=== PATIENT | female | born 1975 | race Caucasian/White ===

== ENCOUNTER → 2016-08-19 | Outpatient (CLI) | payer OTHER ==
[~2016-08-19] MED LIST: ALBUTEROL0.09 MG/A2 IH; ANAPROX DS550 MG PO; ATENOLOL25 MG PO; ATENOLOL50 M1 PO; ATIVAN1 MG PO; BENTYL20 MG PO; CARAFATE1 G1 PO; CIPRO500 MG PO; CIPROFLOXACIN500 MG PO; CLARITIN10 MG PO; CLEOCIN150 MG PO; CLINDAMYCIN HC300 MG PO; CLINDAMYCIN300 MG PO; CORTISPORIN SUS10 ML OT; DARVOCET N 1001 TAB PO; DEPAKOTE ER500 MG PO; EPI EZ PEN1 MG/ML IM; ETODOLAC PO; FLEXERIL10 MG PO; Fioricet 325 MG1 TAB PO; GEMFIBROZIL600 MG PO; HYDR12.5C PO; HYDROCODONE BIT1 T11 PO; IBUPROFEN600 MG PO; KCL PO; KEFLEX500 MG PO; KLOR-CON M2020 MEQ PO; LASIX40 MG PO; METFORMIN500 MG PO; MOTRIN400 MG PO; MOTRIN800 MG PO; MUCINEX100 MG PO; NAPROSYN500 MG PO; NKHM; NORCO 325 MG-51 TAB PO; OMEPRAZOLE20 MG PO; PAXIL20 MG PO; PAXIL30 M2 PO; PHENERGAN25 M1 PO; PREDNISONE10 MG PO; PRILOSEC20 M1 PO; PRILOSEC20 MG PO; PYRIDIUM200 MG PO; Peridex 473 ML473 ML PO; ROBITUSSIN-AC 160 ML PO; SEPTRA DS 800 M1 TAB PO; TESSALON PERLE200 MG PO; TRAMADOL HCL50 MG PO; TYLENOL325 M1 PO; ULTRAM50 MG PO; VENTOLIN H0.09 MG/AC INH; VIBRAMYCIN100 MG PO; VICODIN 500 MG-1 TAB PO; VIT D PO; VITAMIN D32000 I1 PO; VOLTAREN50 M1 PO; WELLBUTRIN SR150 MG PO; ZITHROMAX Z PA250 MG PO; ZOFRAN ODT4 MG PO; ZOFRAN ODT4 MG SL; ZOFRAN4 MG PO; [UNRECOGNIZED DRUG - REMARK]
--- NOTE | ~2016-08-19 | ST ---
[place], [place] EXERCISE STRESS TEST REPORT NAME: [facility]: [id number] UNIT #: [id number] ROOM: DOCTOR: EMILY LAND MD BIRTHDATE: [birth year] DOS: Lexiscan portion of the Lexiscan Cardiolite, 0.4 mg of Lexiscan, duration of 10 seconds. Baseline cardiogram, sinus rhythm with Lexiscan. There is 1-[address] depression in the inferior and lateral leads which slowly reverted back to the baseline. The patient denies any chest discomfort. Blood pressure and heart rate response was normal. FINAL IMPRESSION: Abnormal EKG response with ST depression in the inferior and lateral leads. No chest discomfort. Blood pressure and heart rate response was normal. Nuclear images will be reported separately. EMILY LAND MD CM:STRESS:EXERCISE STRESS TEST REPORT [id number] JEWEL LAND MD
== END | disposition home or self-care (01) ==
LOC: CARD 02:49
DX: Z01.818 Encounter for other preprocedural examination (principal); R53.83 Other fatigue; R06.02 Shortness of breath; R53.81 Other malaise

== ENCOUNTER 2017-02-17 19:31 | Emergency (ER) | payer OTHER ==
[~2017-02-17] VITALS: Ht 180.3 cm; Wt 150.1 kg
[2017-02-17 19:50] VITALS: BP 121/84
[2017-02-17] MEDS ORDERED: PREDNISONE10 MG PO (20:07)
[2017-02-17] MEDS ORDERED: ZITHROMAX250 MG PO (20:07)
[2017-02-17] MEDS ORDERED: DUONEB 3 MG/3 ML3 M1 INH (20:42)
== END 2017-02-17 21:13 | disposition home or self-care (01) ==
LOC: ED 19:31
DX: J20.9 Acute bronchitis, unspecified (principal); J44.9 Chronic obstructive pulmonary disease, unspecified; G43.909 Migraine, unspecified, not intractable, without status migrainosus; F17.200 Nicotine dependence, unspecified, uncomplicated; Z88.0 Allergy status to penicillin; Z88.2 Allergy status to sulfonamides; Z79.899 Other long term (current) drug therapy

== ENCOUNTER → 2017-07-01 | Outpatient (CLI) | payer OTHER ==
[~2017-07-01] MED LIST changes: +DUONEB 3 MG/3 ML3 M1 INH; +ZITHROMAX250 MG PO
== END | disposition home or self-care (01) ==
LOC: NM 06:57
DX: R10.11 Right upper quadrant pain (principal); R10.84 Generalized abdominal pain; R11.0 Nausea

== ENCOUNTER → 2017-09-18 | Day surgery (SDC) | payer OTHER ==
[~2017-09-18] VITALS: Ht 172.7 cm; Wt 154.7 kg
--- NOTE | ~2017-09-18 | O ---
[place], [place] OPERATIVE NOTE NAME: [id number] UNIT #: [id number] ROOM: DOCTOR: MARICRUZ REECELAURIE BIRTHDATE: [birth year] DOS: 09/18/2017 GASTROENDOSCOPIC REPORT HISTORY OF PRESENT ILLNESS: This is a 42-year-old obese patient who has presented with a liquid diarrhea stool and she has a history of diabetes mellitus as well. She is drinking 6 Mountain Dews per day. PAST MEDICAL HISTORY: Associated with diabetes, hypertension. PAST SURGICAL HISTORY: Hysterectomy and left ankle repair. ALLERGIES: PENICILLIN AND SULFA. FAMILY HISTORY: Sister with colonic carcinoma who at age 40. SOCIAL HISTORY: Smoker of a pack cigarette, nonalcohol consumer. PROCEDURE: Today's procedure part of investigation is colonoscopy plus biopsy. PREMEDICATION: Versed and Diprivan. SCOPE: Olympus folding colonoscope 10L video. REPORT: After putting the patient in left lateral position and application of lubricant to the scope, the scope was introduced. Thereafter, under direct visualization, advanced through the length of colon without difficulty. Base of the cecum explored, appendiceal orifice identified, ileocecal valve was defined and photographed. Scope was gradually withdrawn from ascending, transverse, descending colon under circumferential fashion. Mucosal vascularity carefully examined and ____. Scope withdrawn to the sigmoid level and nonspecific colitis. A segment of approximately 8 cm was noticed. Photographed biopsied. Gradually scope withdrawn after air was suctioned out. The patient tolerated the procedure well. IMPRESSION: Short segment of nonspecific colitis of sigmoid colon, status post biopsy. PLAN AND DISCUSSION: This patient has been on naproxen, has been on metformin, and also has been on Prilosec. All may have led to some of the irregularity of her bowel movement. However, the most concerning on the list is her metformin intake. We are going to switch her to metformin extended release tablet 1 b.i.d. I have advised her to abstain from drinking 6 cans of Mountain Dews per day. We have advised her to abstain from inhaling cigarettes or avoiding cigarettes entirely and the patient is already on Zithromax and prednisone for bronchitis management. The patient is going to have routine follow up with you in office, p.r.n. visit with us in clinic. Advised to be more compliant with diabetic diet. Thank you very much indeed for kind referral. [place], [place] OPERATIVE NOTE NAME: KANDY FRANCISCO UNIT #: [id number] ROOM: DOCTOR: MARICRUZ REECE,LAURIE BIRTHDATE: [birth year] LAURIE ALCANTARA MD CM:OPRECORD:OPERATIVE NOTE [id number] LAURIE ALCANTARA MD 09/18/17 1336 interface
[2017-09-18 09:15] VITALS: BP 134/68
[2017-09-18 10:35] VITALS: BP 168/104
== END | disposition home or self-care (01) ==
LOC: SDC 09-15 11:00
DX: K51.90 Ulcerative colitis, unspecified, without complications (principal); E11.9 Type 2 diabetes mellitus without complications; I10 Essential (primary) hypertension; Z90.710 Acquired absence of both cervix and uterus; Z98.890 Other specified postprocedural states; Z88.0 Allergy status to penicillin; Z88.1 Allergy status to other antibiotic agents; Z80.0 Family history of malignant neoplasm of digestive organs; F17.210 Nicotine dependence, cigarettes, uncomplicated; K21.9 Gastro-esophageal reflux disease without esophagitis; J44.9 Chronic obstructive pulmonary disease, unspecified; G47.30 Sleep apnea, unspecified; E66.01 Morbid (severe) obesity due to excess calories; Z79.84 Long term (current) use of oral hypoglycemic drugs; Z79.899 Other long term (current) drug therapy; M19.90 Unspecified osteoarthritis, unspecified site; F31.9 Bipolar disorder, unspecified; F79 Unspecified intellectual disabilities; Z83.3 Family history of diabetes mellitus; Z82.49 Family history of ischemic heart disease and other diseases of the circulatory system; Z80.9 Family history of malignant neoplasm, unspecified

== ENCOUNTER → 2018-07-17 | Outpatient (CLI) | payer OTHER | END | disposition home or self-care (01) | LOC: RAD 16:04 | DX: M47.816 Spondylosis without myelopathy or radiculopathy, lumbar region (principal); M48.061 Spinal stenosis, lumbar region without neurogenic claudication ==

== ENCOUNTER 2018-11-24 18:05 | Emergency (ER) | payer OTHER ==
[~2018-11-24] VITALS: Ht 172.7 cm; Wt 157.9 kg
[2018-11-24 18:06] VITALS: BP 160/82
[2018-11-24 18:54] LABS: HEMATOCRIT 44.5 % (37.0-47.0); HEMOGLOBIN 15.3 g/dl (12.0-16.0); MEAN CELL VOLUME 93.7 fl (81.0-99.0); MEAN CORPUSCULAR HGB 32.2 pg (27.0-31.0); MEAN CORPUSCULAR HGB CONC 34.4 g/dl (33.0-37.0); MEAN PLATELET VOLUME 11.9 fl (9.6-12.3); PLATELET COUNT AUTOMATED 237 10*3/uL (130-400); RED BLOOD COUNT 4.75 10*6/uL (4.10-5.10); RED CELL DISTRI WIDTH 13.6 % (0-14.5); WHITE BLOOD COUNT 13.1 10*3/uL (4.8-10.8)
[2018-11-24 19:10] LABS: ALBUMIN 3.7 gm/dl (3.1-4.5); CREATININE 1.2 mg/dL (0.55-1.02); POTASSIUM 3.6 mmol/L (3.5-5.1); TOTAL PROTEIN 6.9 gm/dL (6.4-8.2)
[2018-11-24 19:20] LABS: BASOPHILS 1 % (0-1); BURR CELLS FEW; TOTAL CELLS COUNTED 100 #CELLS
[2018-11-24 19:21] LABS: PLATELET SUFFICIENCY NORMAL (NORMAL)
[2018-12-07] MEDS ORDERED: LISINOPRIL5 MG PO (09:35)
[2018-12-07] MEDS ORDERED: TEMAZEPAM15 M1 PO (09:36)
[2018-12-07] MEDS ORDERED: HYDROCHLOROTHIA25 M1 PO (09:37)
[2018-12-07] MEDS ORDERED: ATENOLOL25 MG PO (09:37)
[2018-12-07] MEDS ORDERED: OXAPROZIN600 M1 PO (09:38)
[2018-12-07] MEDS ORDERED: 24 HOUR ALLER15.8 ML NAS (09:40)
[2018-12-07] MEDS ORDERED: OHM ALLERGY REL10 MG PO (09:40)
[2018-12-07] MEDS ORDERED: PROVENTIL HFA6.7 GM INH (09:41)
[2018-12-07] MEDS ORDERED: ATORVASTATIN CA80 M1 PO (09:42)
[2018-12-07] MEDS ORDERED: LANSOPRAZOLE30 MG PO (09:42)
[2018-12-07] MEDS ORDERED: NATURE'S BLEND F1 MG PO (09:43)
[2018-12-07] MEDS ORDERED: VITAMIN D32000 UNI1 PO (09:43)
[2018-12-07] MEDS ORDERED: AVPAK METFORMI500 M1 PO (09:47)
[2018-12-07] MEDS ORDERED: ALOGLIPTIN25 MG PO (09:48)
[2018-12-07] MEDS ORDERED: [UNRECOGNIZED DRUG - OTHER] INH (09:48)
[2018-12-07] MEDS ORDERED: NOVOLIN 70100 UNIT/1 SQ (09:51)
[2018-12-10] MEDS ORDERED: HYOSCYAMINE0.125 MG PO (15:26)
== END 2018-11-24 19:51 | disposition home or self-care (01) ==
LOC: ED 18:05
PROVIDERS: Emergency Medicine
DX: K62.5 Hemorrhage of anus and rectum (principal); R10.84 Generalized abdominal pain; F17.200 Nicotine dependence, unspecified, uncomplicated; G43.909 Migraine, unspecified, not intractable, without status migrainosus; Z98.51 Tubal ligation status; Z90.710 Acquired absence of both cervix and uterus; Z98.890 Other specified postprocedural states; Z79.899 Other long term (current) drug therapy; Z88.0 Allergy status to penicillin; Z88.2 Allergy status to sulfonamides

== ENCOUNTER → 2018-12-28 | Outpatient (CLI) | payer OTHER ==
[~2018-12-28] MED LIST changes: +24 HOUR ALLER15.8 ML NAS; +ALOGLIPTIN25 MG PO; +ATORVASTATIN CA80 M1 PO; +AVPAK METFORMI500 M1 PO; +HYDROCHLOROTHIA25 M1 PO; +HYOSCYAMINE0.125 MG PO; +LANSOPRAZOLE30 MG PO; +LISINOPRIL5 MG PO; +NATURE'S BLEND F1 MG PO; +NOVOLIN 70100 UNIT/1 SQ; +OHM ALLERGY REL10 MG PO; +OXAPROZIN600 M1 PO; +PROVENTIL HFA6.7 GM INH; +TEMAZEPAM15 M1 PO; +VITAMIN D32000 UNI1 PO; +[UNRECOGNIZED DRUG - OTHER] INH
== END | disposition home or self-care (01) ==
LOC: D 10:07
DX: I10 Essential (primary) hypertension (principal)

== ENCOUNTER → 2019-06-22 | Day surgery (SDC) | payer OTHER ==
[~2019-06-22] VITALS: Ht 172.7 cm; Wt 152.9 kg
[~2019-06-22] MED LIST changes: +DULCOLAX5 M1 PO; +NORCO 10-325 T1 EACH PO; +SURFAK240 MG PO
[2019-06-22 07:03] VITALS: BP 101/73
[2019-06-22 08:30] VITALS: BP 122/64
[2019-06-22 08:45] VITALS: BP 118/73
[2019-06-22 09:00] VITALS: BP 121/75
== END | disposition home or self-care (01) ==
LOC: SDC 05-20 12:30
DX: K62.5 Hemorrhage of anus and rectum (principal); C21.8 Malignant neoplasm of overlapping sites of rectum, anus and anal canal; K29.50 Unspecified chronic gastritis without bleeding; J44.9 Chronic obstructive pulmonary disease, unspecified; I10 Essential (primary) hypertension; K21.9 Gastro-esophageal reflux disease without esophagitis; F41.9 Anxiety disorder, unspecified; F32.9 Major depressive disorder, single episode, unspecified; F17.210 Nicotine dependence, cigarettes, uncomplicated; E66.01 Morbid (severe) obesity due to excess calories; Z68.43 Body mass index [BMI] 50.0-59.9, adult; Z88.2 Allergy status to sulfonamides; Z88.0 Allergy status to penicillin; Z88.8 Allergy status to other drugs, medicaments and biological substances; Z79.899 Other long term (current) drug therapy; Z98.890 Other specified postprocedural states; Z83.3 Family history of diabetes mellitus; Z82.3 Family history of stroke; Z82.49 Family history of ischemic heart disease and other diseases of the circulatory system

== ENCOUNTER 2019-07-02 15:49 | Emergency (ER) | payer OTHER ==
[~2019-07-02] VITALS: Ht 172.7 cm; Wt 152.9 kg
[~2019-07-02 15:49] MED LIST changes: -DULCOLAX5 M1 PO; -NORCO 10-325 T1 EACH PO; -SURFAK240 MG PO
[2019-07-02 15:59] VITALS: BP 100/50
[2019-07-02 16:20] LABS: HEMATOCRIT 43.6 % (37.0-47.0); HEMOGLOBIN 14.7 g/dl (12.0-16.0); MEAN CELL VOLUME 90.6 fl (81.0-99.0); MEAN CORPUSCULAR HGB 30.6 pg (27.0-31.0); MEAN CORPUSCULAR HGB CONC 33.7 g/dl (33.0-37.0); MEAN PLATELET VOLUME 11.3 fl (9.6-12.3); PLATELET COUNT AUTOMATED 217 10*3/uL (130-400); RED BLOOD COUNT 4.81 10*6/uL (4.10-5.10); RED CELL DISTRI WIDTH 13.9 % (0-14.5); WHITE BLOOD COUNT 17.5 10*3/uL (4.8-10.8)
[2019-07-02 16:32] LABS: ACT PARTIAL THROMBO TIME 27.3 SECONDS (20.0-32.1)
[2019-07-02 16:43] LABS: PLATELET SUFFICIENCY NORMAL (NORMAL); TOTAL CELLS COUNTED 100 #CELLS
[2019-07-02 16:48] LABS: ALBUMIN 3.4 gm/dl (3.1-4.5); ALKALINE PHOSPHATASE 60 U/L (45-117); BUN 18 mg/dl (7-24); CHLORIDE 102 mmol/L (98-107); CREATININE 1.18 mg/dL (0.55-1.02); POTASSIUM 3.2 mmol/L (3.5-5.1); SGOT/AST 23 IU/L (3-35); SGPT/ALT 17 U/L (12-78); SODIUM 140 mmol/L (136-145); TOTAL PROTEIN 7.5 gm/dL (6.4-8.2)
[2019-07-02] MEDS ORDERED: NORCO 10-325 T1 EACH PO (17:04)
[2019-07-02] MEDS ORDERED: SURFAK240 MG PO (17:05)
[2019-07-02] MEDS ORDERED: DULCOLAX5 M1 PO (17:05)
[2019-07-03 08:01] LABS: DIFFERENTIAL COMMENT COMMENT:
== END 2019-07-02 17:08 | disposition home or self-care (01) ==
LOC: ED 15:49
PROVIDERS: Emergency Medicine
DX: K62.5 Hemorrhage of anus and rectum (principal); E11.9 Type 2 diabetes mellitus without complications; G43.909 Migraine, unspecified, not intractable, without status migrainosus; K21.9 Gastro-esophageal reflux disease without esophagitis; J44.9 Chronic obstructive pulmonary disease, unspecified; E78.00 Pure hypercholesterolemia, unspecified; F17.200 Nicotine dependence, unspecified, uncomplicated; Z88.0 Allergy status to penicillin; Z88.2 Allergy status to sulfonamides; Z79.899 Other long term (current) drug therapy; Z79.4 Long term (current) use of insulin

== ENCOUNTER 2019-08-10 11:12 | Emergency (ER) | payer OTHER ==
[~2019-08-10] VITALS: Ht 172.7 cm; Wt 152.9 kg
[~2019-08-10 11:12] MED LIST changes: +DULCOLAX5 M1 PO; +NORCO 10-325 T1 EACH PO; +SURFAK240 MG PO
[2019-08-10 11:20] VITALS: BP 113/58
[2019-08-10] MEDS ORDERED: NORCO 10-325 T1 EACH PO (11:52)
== END 2019-08-10 12:10 | disposition home or self-care (01) ==
LOC: ED 11:12
DX: C18.9 Malignant neoplasm of colon, unspecified (principal); G43.909 Migraine, unspecified, not intractable, without status migrainosus; J45.909 Unspecified asthma, uncomplicated; K21.9 Gastro-esophageal reflux disease without esophagitis; I10 Essential (primary) hypertension; E11.9 Type 2 diabetes mellitus without complications; M19.90 Unspecified osteoarthritis, unspecified site; J44.9 Chronic obstructive pulmonary disease, unspecified; E78.00 Pure hypercholesterolemia, unspecified; F17.200 Nicotine dependence, unspecified, uncomplicated; Z88.0 Allergy status to penicillin; Z88.2 Allergy status to sulfonamides; Z91.030 Bee allergy status; Z79.899 Other long term (current) drug therapy

== ENCOUNTER 2020-01-24 17:20 | Emergency (ER) | payer OTHER ==
[~2020-01-24] VITALS: Ht 175.2 cm; Wt 145.1 kg
[2020-01-24 17:22] VITALS: BP 118/56
[2020-01-24 17:54] LABS: BASO # 0.1 10*3/uL (0.0-0.1); BASO % 1.3 % (0.0-1.0); EOS # 0.2 10*3/uL (0.0-0.4); EOS % 3.2 % (1.0-4.0); HEMATOCRIT 40.5 % (37.0-47.0); LYMPH # 1.6 10*3/uL (1.3-4.4); LYMPH % 21.8 % (27.0-41.0); MEAN CORPUSCULAR HGB 32.5 pg (27.0-31.0); MEAN CORPUSCULAR HGB CONC 33.8 g/dl (33.0-37.0); MEAN PLATELET VOLUME 10.5 fl (9.6-12.3); MONO # 0.5 10*3/uL (0.1-1.0); NEUT # 4.9 10*3/uL (2.3-7.9); NEUT % 65.9 % (47.0-73.0); PLATELET COUNT AUTOMATED 260 10*3/uL (130-400); RED BLOOD COUNT 4.22 10*6/uL (4.10-5.10); RED CELL DISTRI WIDTH 16.7 % (0-14.5); WHITE BLOOD COUNT 7.5 10*3/uL (4.8-10.8)
[2020-01-24 18:08] LABS: ACT PARTIAL THROMBO TIME 27.9 SECONDS (20.0-32.1)
[2020-01-24 18:10] LABS: ALBUMIN 3.1 gm/dl (3.1-4.5); ALKALINE PHOSPHATASE 75 U/L (45-117); BUN 12 mg/dl (7-24); CHLORIDE 103 mmol/L (98-107); CREATININE 0.86 mg/dL (0.55-1.02); LIPASE 207 U/L (73-393); POTASSIUM 3.6 mmol/L (3.5-5.1); SGOT/AST 12 IU/L (3-35); SGPT/ALT 25 U/L (12-78); SODIUM 137 mmol/L (136-145); TOTAL PROTEIN 7.2 gm/dL (6.4-8.2)
[2020-01-24 18:12] LABS: BILIRUBIN 1+ (NEGATIVE); BLOOD TRACE-INTACT (NEGATIVE); CLARITY CLOUDY (CLEAR); COLOR YELLOW (YELLOW); GLUCOSE NEGATIVE (NEGATIVE); KETONE NEGATIVE (NEGATIVE); LEUKO ESTERASE 3+ (NEGATIVE); NITRITE NEGATIVE (NEGATIVE); PH 6.5 (5.0-9.0); SPECIFIC GRAVITY 1.015 (1.005-1.030); UROBILINOGEN 0.2 E.U./dl (0.2-1.0)
[2020-01-24 18:37] LABS: RBC 31-40 rbc/hpf (0-2); WBC TNTC wbc/hpf (0-5)
[2020-01-24 18:38] LABS: BACTERIA 3+
[2020-01-24] MEDS ORDERED: CEPHALEXIN500 M1 PO (20:29)
== END 2020-01-24 20:55 | disposition home or self-care (01) ==
LOC: ED 17:20
PROVIDERS: Nurse Practitioner Family
DX: N39.0 Urinary tract infection, site not specified (principal); Z88.8 Allergy status to other drugs, medicaments and biological substances; Z88.0 Allergy status to penicillin; Z88.5 Allergy status to narcotic agent; Z91.030 Bee allergy status; Z79.899 Other long term (current) drug therapy

== ENCOUNTER 2020-05-22 17:37 | Emergency (ER) | payer MEDICARE, MEDICAID ==
[~2020-05-22] VITALS: Ht 175.2 cm; Wt 146.1 kg
[~2020-05-22 17:37] MED LIST changes: +CEPHALEXIN500 M1 PO
[2020-05-22 17:44] VITALS: BP 133/89
[2020-05-22 17:59] LABS: BASO # 0.1 10*3/uL (0.0-0.1); BASO % 1.3 % (0.0-1.0); EOS # 0.1 10*3/uL (0.0-0.4); EOS % 1.8 % (1.0-4.0); HEMATOCRIT 44.9 % (37.0-47.0); LYMPH # 1.9 10*3/uL (1.3-4.4); LYMPH % 26.1 % (27.0-41.0); MEAN CELL VOLUME 84.9 fl (81.0-99.0); MEAN PLATELET VOLUME 10.4 fl (9.6-12.3); MONO # 0.4 10*3/uL (0.1-1.0); MONO % 5.7 % (3.0-9.0); NEUT # 4.6 10*3/uL (2.3-7.9); NEUT % 64.7 % (47.0-73.0); PLATELET COUNT AUTOMATED 264 10*3/uL (130-400); RED BLOOD COUNT 5.29 10*6/uL (4.10-5.10); RED CELL DISTRI WIDTH 14.1 % (0-14.5); WHITE BLOOD COUNT 7.1 10*3/uL (4.8-10.8)
[2020-05-22 18:15] LABS: ALBUMIN 3.3 gm/dl (3.1-4.5); ALKALINE PHOSPHATASE 83 U/L (45-117); BUN 10 mg/dl (7-24); CHLORIDE 106 mmol/L (98-107); CREATININE 0.91 mg/dL (0.55-1.02); POTASSIUM 3.6 mmol/L (3.5-5.1); SGOT/AST 37 IU/L (3-35); SGPT/ALT 40 U/L (12-78); SODIUM 139 mmol/L (136-145); TOTAL PROTEIN 7.5 gm/dL (6.4-8.2)
[2020-05-22 18:16] LABS: TROPONIN I < 0.015 ng/ml (<0.045)
[2020-05-22 18:22] LABS: ACT PARTIAL THROMBO TIME 31.3 SECONDS (20.0-32.1)
[2020-05-22] MEDS ORDERED: KETOROLAC10 MG PO (18:58)
== END 2020-05-22 19:05 | disposition home or self-care (01) ==
LOC: ED 17:37
PROVIDERS: Emergency Medicine
DX: R09.1 Pleurisy (principal); Z88.0 Allergy status to penicillin; Z88.2 Allergy status to sulfonamides; Z91.030 Bee allergy status; Z79.899 Other long term (current) drug therapy; Z79.84 Long term (current) use of oral hypoglycemic drugs; Z79.2 Long term (current) use of antibiotics

== ENCOUNTER 2020-08-18 17:41 | Emergency (ER) | payer OTHER, MEDICAID ==
[~2020-08-18] VITALS: Ht 175.2 cm; Wt 147.4 kg
[~2020-08-18 17:41] MED LIST changes: +KETOROLAC10 MG PO
[2020-08-18 17:50] VITALS: BP 152/92
[2020-08-18 18:28] LABS: BASO # 0.1 10*3/uL (0.0-0.1); BASO % 1.5 % (0.0-1.0); EOS # 0.1 10*3/uL (0.0-0.4); EOS % 1.9 % (1.0-4.0); HEMATOCRIT 44.9 % (37.0-47.0); LYMPH # 1.9 10*3/uL (1.3-4.4); LYMPH % 26.5 % (27.0-41.0); MEAN CELL VOLUME 86.5 fl (81.0-99.0); MEAN CORPUSCULAR HGB 29.5 pg (27.0-31.0); MEAN CORPUSCULAR HGB CONC 34.1 g/dl (33.0-37.0); MEAN PLATELET VOLUME 10.9 fl (9.6-12.3); MONO # 0.5 10*3/uL (0.1-1.0); MONO % 7.4 % (3.0-9.0); NEUT # 4.6 10*3/uL (2.3-7.9); NEUT % 62.4 % (47.0-73.0); PLATELET COUNT AUTOMATED 260 10*3/uL (130-400); RED BLOOD COUNT 5.19 10*6/uL (4.10-5.10); RED CELL DISTRI WIDTH 14.3 % (0-14.5); WHITE BLOOD COUNT 7.3 10*3/uL (4.8-10.8)
[2020-08-18 18:47] LABS: ALBUMIN 3.3 gm/dl (3.1-4.5); ALKALINE PHOSPHATASE 99 U/L (45-117); BUN 16 mg/dl (7-24); CHLORIDE 102 mmol/L (98-107); CREATININE 1.15 mg/dL (0.55-1.02); POTASSIUM 4.1 mmol/L (3.5-5.1); SGOT/AST 36 IU/L (3-35); SGPT/ALT 43 U/L (12-78); SODIUM 134 mmol/L (136-145); TOTAL PROTEIN 7.4 gm/dL (6.4-8.2)
[2020-08-18 18:57] LABS: BILIRUBIN Negative (Negative); BLOOD Trace-Lysed (Negative); CLARITY Clear (Clear); COLOR Yellow (Yellow); GLUCOSE 3+ (Negative); KETONE Negative (Negative); LEUKO ESTERASE 1+ (Negative); NITRITE Negative (Negative); SPECIFIC GRAVITY >= 1.030 (1.001-1.030); UROBILINOGEN 0.2 E.U./dl (0.0-1.0)
[2020-08-18 19:09] LABS: EPITHELIAL CELLS 16-20; WBC 16-20 wbc/hpf (0-5)
[2020-08-18] MEDS ORDERED: IMODIUM A-D2 M2 PO (20:38)
== END 2020-08-18 20:50 | disposition home or self-care (01) ==
LOC: ED 17:41
PROVIDERS: Nurse Practitioner Family
DX: R11.2 Nausea with vomiting, unspecified (principal); Z20.828 Contact with and (suspected) exposure to other viral communicable diseases; R19.7 Diarrhea, unspecified; E11.9 Type 2 diabetes mellitus without complications; Z98.51 Tubal ligation status; Z90.710 Acquired absence of both cervix and uterus; Z79.899 Other long term (current) drug therapy; Z88.0 Allergy status to penicillin; Z88.2 Allergy status to sulfonamides; Z91.030 Bee allergy status

== ENCOUNTER → 2020-09-28 | Outpatient (CLI) | payer OTHER, MEDICAID ==
[~2020-09-28] MED LIST changes: +IMODIUM A-D2 M2 PO
== END | disposition home or self-care (01) ==
LOC: US 09-12 07:30
PROVIDERS: ATTEND Family Medicine
DX: D37.6 Neoplasm of uncertain behavior of liver, gallbladder and bile ducts (principal)

== ENCOUNTER 2021-05-01 05:32 | Emergency (ER) | payer MEDICARE ==
[~2021-05-01] VITALS: Ht 167.6 cm; Wt 144.2 kg
[2021-05-01 06:27] LABS: BASO # 0.1 10*3/uL (0.0-0.1); BASO % 1.1 % (0.0-1.0); EOS # 0.1 10*3/uL (0.0-0.4); EOS % 1.5 % (1.0-4.0); HEMATOCRIT 45.4 % (37.0-47.0); LYMPH # 2.4 10*3/uL (1.3-4.4); LYMPH % 25.8 % (27.0-41.0); MEAN CELL VOLUME 89.2 fl (81.0-99.0); MEAN CORPUSCULAR HGB 29.9 pg (27.0-31.0); MEAN CORPUSCULAR HGB CONC 33.5 g/dl (33.0-37.0); MEAN PLATELET VOLUME 10.7 fl (9.6-12.3); MONO # 0.7 10*3/uL (0.1-1.0); MONO % 7.3 % (3.0-9.0); NEUT # 6.1 10*3/uL (2.3-7.9); PLATELET COUNT AUTOMATED 227 10*3/uL (130-400); RED BLOOD COUNT 5.09 10*6/uL (4.10-5.10); RED CELL DISTRI WIDTH 14.7 % (0-14.5); WHITE BLOOD COUNT 9.5 10*3/uL (4.8-10.8)
[2021-05-01 06:45] LABS: ALBUMIN 3.2 gm/dl (3.1-4.5); ALKALINE PHOSPHATASE 86 U/L (45-117); BUN 16 mg/dl (7-24); CHLORIDE 106 mmol/L (98-107); CREATININE 0.94 mg/dL (0.55-1.02); LIPASE 136 U/L (73-393); POTASSIUM 4.1 mmol/L (3.5-5.1); SGOT/AST 16 IU/L (3-35); SGPT/ALT 30 U/L (12-78); SODIUM 138 mmol/L (136-145); TOTAL PROTEIN 7.2 gm/dL (6.4-8.2)
[2021-05-01 06:54] LABS: BILIRUBIN Negative (Negative); BLOOD Negative (Negative); CLARITY Cloudy (Clear); COLOR Yellow (Yellow); GLUCOSE 3+ (Negative); KETONE Negative (Negative); LEUKO ESTERASE 2+ (Negative); NITRITE Negative (Negative); PH 5.5 (4.5-8.0); SPECIFIC GRAVITY 1.025 (1.001-1.030)
[2021-05-01 07:08] LABS: BACTERIA 4+; WBC 41-50 wbc/hpf (0-5)
[2021-05-01 08:07] VITALS: BP 128/79
[2021-05-01] MEDS ORDERED: Motrin,Rufen800 MG PO (12:20)
[2021-05-01] MEDS ORDERED: CIPRO500 MG PO (12:20)
== END 2021-05-01 12:30 | disposition home or self-care (01) ==
LOC: ED 05:32
PROVIDERS: Emergency Medicine
DX: N39.0 Urinary tract infection, site not specified (principal); Z88.0 Allergy status to penicillin; Z88.2 Allergy status to sulfonamides; Z91.030 Bee allergy status; Z79.899 Other long term (current) drug therapy

== ENCOUNTER 2021-08-22 13:00 | Emergency (ER) | payer OTHER ==
[~2021-08-22 13:00] MED LIST changes: +Motrin,Rufen800 MG PO
[2021-08-22 13:10] VITALS: BP 111/61
[2021-08-22] MEDS ORDERED: CEPHALEXIN500 M1 PO (15:08)
== END 2021-08-22 15:15 | disposition home or self-care (01) ==
LOC: ED 13:00
DX: S90.411A Abrasion, right great toe, initial encounter (principal); Z88.0 Allergy status to penicillin; Z88.2 Allergy status to sulfonamides; Z79.899 Other long term (current) drug therapy; Z98.51 Tubal ligation status; Z90.710 Acquired absence of both cervix and uterus; Z98.890 Other specified postprocedural states; W23.0XXA Caught, crushed, jammed, or pinched between moving objects, initial encounter; Y93.89 Activity, other specified; Y92.89 Other specified places as the place of occurrence of the external cause; Y99.8 Other external cause status

== ENCOUNTER 2021-12-07 16:43 | Emergency (ER) | payer OTHER ==
[~2021-12-07] VITALS: Ht 175.2 cm; Wt 147.4 kg
[2021-12-07 17:16] LABS: BASO # 0.1 10*3/uL (0.0-0.1); BASO % 0.9 % (0.0-1.0); EOS # 0.1 10*3/uL (0.0-0.4); EOS % 1.9 % (1.0-4.0); HEMATOCRIT 39.4 % (37.0-47.0); LYMPH # 1.3 10*3/uL (1.3-4.4); LYMPH % 17.2 % (27.0-41.0); MEAN CELL VOLUME 91.6 fl (81.0-99.0); MEAN CORPUSCULAR HGB 31.2 pg (27.0-31.0); MEAN PLATELET VOLUME 10.8 fl (9.6-12.3); MONO # 0.6 10*3/uL (0.1-1.0); MONO % 8.2 % (3.0-9.0); NEUT # 5.4 10*3/uL (2.3-7.9); NEUT % 71.5 % (47.0-73.0); PLATELET COUNT AUTOMATED 161 10*3/uL (130-400); RED CELL DISTRI WIDTH 14.8 % (0-14.5); WHITE BLOOD COUNT 7.5 10*3/uL (4.8-10.8)
[2021-12-07 17:34] LABS: ALKALINE PHOSPHATASE 80 U/L (45-117); BUN 26 mg/dl (7-24); CHLORIDE 105 mmol/L (98-107); CREATININE 1.08 mg/dL (0.55-1.02); LIPASE 118 U/L (73-393); POTASSIUM 4.7 mmol/L (3.5-5.1); SGOT/AST 15 IU/L (3-35); SGPT/ALT 24 U/L (12-78); SODIUM 137 mmol/L (136-145); TOTAL PROTEIN 6.9 gm/dL (6.4-8.2)
[2021-12-07 17:51] LABS: BILIRUBIN Negative (Negative); BLOOD 1+ (Negative); CLARITY Clear (Clear); COLOR Yellow (Yellow); GLUCOSE 3+ (Negative); KETONE Trace (Negative); LEUKO ESTERASE 2+ (Negative); NITRITE Negative (Negative); SPECIFIC GRAVITY >= 1.030 (1.001-1.030)
[2021-12-07 17:59] LABS: BACTERIA 2+; MUCOUS TRACE; WBC 51-100 wbc/hpf (0-5)
[2021-12-07 20:01] VITALS: BP 108/60
== END 2021-12-07 20:37 | disposition home or self-care (01) ==
LOC: ED 16:43
PROVIDERS: Emergency Medicine
DX: N39.0 Urinary tract infection, site not specified (principal); E11.9 Type 2 diabetes mellitus without complications; I10 Essential (primary) hypertension; E78.00 Pure hypercholesterolemia, unspecified; E66.01 Morbid (severe) obesity due to excess calories; N17.9 Acute kidney failure, unspecified; E11.65 Type 2 diabetes mellitus with hyperglycemia; E87.2 Acidosis; E46 Unspecified protein-calorie malnutrition; G43.909 Migraine, unspecified, not intractable, without status migrainosus; F17.200 Nicotine dependence, unspecified, uncomplicated; Z98.51 Tubal ligation status; Z90.710 Acquired absence of both cervix and uterus; Z79.899 Other long term (current) drug therapy; Z88.0 Allergy status to penicillin; Z88.2 Allergy status to sulfonamides

== ENCOUNTER 2022-01-13 22:32 | Emergency (ER) | payer OTHER ==
[~2022-01-13] VITALS: Ht 175.2 cm; Wt 139.7 kg
[2022-01-14 00:43] LABS: BILIRUBIN Negative (Negative); BLOOD Negative (Negative); CLARITY Clear (Clear); COLOR Yellow (Yellow); GLUCOSE 2+ (Negative); KETONE Trace (Negative); LEUKO ESTERASE 2+ (Negative); NITRITE Negative (Negative)
[2022-01-14 00:44] LABS: BASO # 0.1 10*3/uL (0.0-0.1); EOS # 0.1 10*3/uL (0.0-0.4); EOS % 1.5 % (1.0-4.0); HEMATOCRIT 39.5 % (37.0-47.0); LYMPH # 2.1 10*3/uL (1.3-4.4); LYMPH % 29.6 % (27.0-41.0); MEAN CELL VOLUME 93.8 fl (81.0-99.0); MEAN CORPUSCULAR HGB 31.8 pg (27.0-31.0); MEAN CORPUSCULAR HGB CONC 33.9 g/dl (33.0-37.0); MEAN PLATELET VOLUME 10.4 fl (9.6-12.3); MONO # 0.6 10*3/uL (0.1-1.0); MONO % 8.5 % (3.0-9.0); NEUT # 4.2 10*3/uL (2.3-7.9); PLATELET COUNT AUTOMATED 220 10*3/uL (130-400); RED BLOOD COUNT 4.21 10*6/uL (4.10-5.10); RED CELL DISTRI WIDTH 15.4 % (0-14.5); WHITE BLOOD COUNT 7.2 10*3/uL (4.8-10.8)
[2022-01-14 00:55] LABS: BACTERIA 1+; EPITHELIAL CELLS 16-20; WBC 21-30 wbc/hpf (0-5)
[2022-01-14 01:00] LABS: ALKALINE PHOSPHATASE 82 U/L (45-117); BUN 13 mg/dl (7-24); CHLORIDE 106 mmol/L (98-107); CREATININE 1.16 mg/dL (0.55-1.02); POTASSIUM 3.9 mmol/L (3.5-5.1); SGOT/AST 33 IU/L (3-35); SGPT/ALT 46 U/L (12-78); SODIUM 141 mmol/L (136-145); TOTAL PROTEIN 7.3 gm/dL (6.4-8.2)
[2022-01-14 02:08] VITALS: BP 115/43
[2022-01-14] MEDS ORDERED: CEPHALEXIN500 M1 PO (06:16)
== END 2022-01-14 06:41 | disposition home or self-care (01) ==
LOC: ED 22:32
PROVIDERS: Emergency Medicine
DX: J06.9 Acute upper respiratory infection, unspecified (principal); Z20.822 Contact with and (suspected) exposure to COVID-19; N39.0 Urinary tract infection, site not specified; J40 Bronchitis, not specified as acute or chronic

== ENCOUNTER → 2022-08-15 | Outpatient (CLI) | payer OTHER ==
[2022-08-15 14:39] LABS: BILIRUBIN Negative (Negative); BLOOD Negative (Negative); CLARITY Clear (Clear); COLOR Yellow (Yellow); GLUCOSE 1+ (Negative); KETONE Negative (Negative); LEUKO ESTERASE 2+ (Negative); NITRITE Negative (Negative); PH 6.5 (4.5-8.0); SPECIFIC GRAVITY 1.015 (1.001-1.030)
[2022-08-15 14:41] LABS: BASO # 0.1 10*3/uL (0.0-0.1); BASO % 0.6 % (0.0-1.0); EOS # 0.1 10*3/uL (0.0-0.4); EOS % 0.9 % (1.0-4.0); HEMATOCRIT 44.8 % (37.0-47.0); LYMPH # 2.6 10*3/uL (1.3-4.4); LYMPH % 27.7 % (27.0-41.0); MEAN CELL VOLUME 87.3 fl (81.0-99.0); MEAN CORPUSCULAR HGB 29.2 pg (27.0-31.0); MEAN CORPUSCULAR HGB CONC 33.5 g/dl (33.0-37.0); MEAN PLATELET VOLUME 10.7 fl (9.6-12.3); MONO # 0.5 10*3/uL (0.1-1.0); MONO % 5.4 % (3.0-9.0); NEUT # 6.2 10*3/uL (2.3-7.9); PLATELET COUNT AUTOMATED 268 10*3/uL (130-400); RED BLOOD COUNT 5.13 10*6/uL (4.10-5.10); RED CELL DISTRI WIDTH 14.2 % (0-14.5); RETICULOCYTE % 3.28 % (0.50-2.50); WHITE BLOOD COUNT 9.5 10*3/uL (4.8-10.8)
[2022-08-15 14:53] LABS: RBC 0-2 rbc/hpf (0-2)
[2022-08-15 15:00] LABS: ALKALINE PHOSPHATASE 92 U/L (46-116); BUN 14 mg/dl (9-23); CHLORIDE 104 mmol/L (98-107); CHOLESTEROL 150 mg/dL (<200); GAMMA GLUTAMYL TRANSPEPTIDASE 50 U/L (0-73); LDL CHOLESTEROL 62 mg/dL (9-159); POTASSIUM 4.1 mmol/L (3.4-5.1); SGPT/ALT 29 U/L (10-49); T3 UPTAKE 15.8 % (22.4-36.7); THYROXINE (T4) TOTAL 8.8 ug/dl (4.5-10.9); TOTAL PROTEIN 7.1 gm/dL (6.0-8.0); TRIGLYCERIDES 297 mg/dl (<150)
[2022-08-15 15:45] LABS: VITAMIN D, 25-HYDROXY 27.9 ng/mL (30-100)
== END | disposition home or self-care (01) ==
LOC: LAB 14:04
PROVIDERS: ATTEND Family Medicine
DX: M47.817 Spondylosis without myelopathy or radiculopathy, lumbosacral region (principal); M47.814 Spondylosis without myelopathy or radiculopathy, thoracic region; M47.812 Spondylosis without myelopathy or radiculopathy, cervical region; E78.5 Hyperlipidemia, unspecified; R53.83 Other fatigue; R79.89 Other specified abnormal findings of blood chemistry; E55.9 Vitamin D deficiency, unspecified

== ENCOUNTER 2022-11-19 20:54 | Emergency (ER) | payer OTHER ==
[~2022-11-19] VITALS: Ht 175.2 cm; Wt 136.1 kg
[2022-11-19 21:27] LABS: BASO # 0.1 10*3/uL (0.0-0.1); BASO % 1.4 % (0.0-1.0); EOS # 0.2 10*3/uL (0.0-0.4); EOS % 2.1 % (1.0-4.0); LYMPH # 3.2 10*3/uL (1.3-4.4); LYMPH % 41.1 % (27.0-41.0); MEAN CELL VOLUME 92.6 fl (81.0-99.0); MEAN CORPUSCULAR HGB 30.5 pg (27.0-31.0); MEAN CORPUSCULAR HGB CONC 32.9 g/dl (33.0-37.0); MONO # 0.5 10*3/uL (0.1-1.0); MONO % 6.7 % (3.0-9.0); NEUT # 3.7 10*3/uL (2.3-7.9); NEUT % 48.1 % (47.0-73.0); PLATELET COUNT AUTOMATED 192 10*3/uL (130-400); RED BLOOD COUNT 4.43 10*6/uL (4.10-5.10); RED CELL DISTRI WIDTH 14.7 % (0-14.5); WHITE BLOOD COUNT 7.7 10*3/uL (4.8-10.8)
[2022-11-19 21:42] LABS: ALKALINE PHOSPHATASE 63 U/L (46-116); BUN 14 mg/dl (9-23); CHLORIDE 105 mmol/L (98-107); POTASSIUM 3.9 mmol/L (3.4-5.1); SGPT/ALT 23 U/L (10-49); TOTAL PROTEIN 6.3 gm/dL (6.0-8.0)
[2022-11-19] MEDS ORDERED: BROMFED DM COU118 M2 PO (22:02)
[2022-11-19 22:12] VITALS: BP 121/67
== END 2022-11-19 22:18 | disposition home or self-care (01) ==
LOC: ED 20:54
PROVIDERS: Nurse Practitioner Family
DX: J06.9 Acute upper respiratory infection, unspecified (principal); J44.9 Chronic obstructive pulmonary disease, unspecified; I10 Essential (primary) hypertension; E11.9 Type 2 diabetes mellitus without complications; K21.9 Gastro-esophageal reflux disease without esophagitis; M19.90 Unspecified osteoarthritis, unspecified site; E78.00 Pure hypercholesterolemia, unspecified; F31.9 Bipolar disorder, unspecified; Z88.0 Allergy status to penicillin; Z88.2 Allergy status to sulfonamides; Z98.51 Tubal ligation status; Z90.710 Acquired absence of both cervix and uterus; Z98.890 Other specified postprocedural states; Z20.822 Contact with and (suspected) exposure to COVID-19

== ENCOUNTER → 2023-01-07 | Outpatient (CLI) | payer OTHER ==
[~2023-01-07] MED LIST changes: +BROMFED DM COU118 M2 PO
[2023-01-07 17:14] LABS: BASO # 0.1 10*3/uL (0.0-0.1); BASO % 0.8 % (0.0-1.0); BILIRUBIN Negative (Negative); BLOOD Negative (Negative); CLARITY Clear (Clear); COLOR Yellow (Yellow); EOS # 0.1 10*3/uL (0.0-0.4); EOS % 1.1 % (1.0-4.0); GLUCOSE Negative (Negative); HEMATOCRIT 42.3 % (37.0-47.0); KETONE Trace (Negative); LEUKO ESTERASE 2+ (Negative); LYMPH # 3.4 10*3/uL (1.3-4.4); LYMPH % 38.2 % (27.0-41.0); MEAN CELL VOLUME 94.4 fl (81.0-99.0); MEAN CORPUSCULAR HGB 31.3 pg (27.0-31.0); MEAN CORPUSCULAR HGB CONC 33.1 g/dl (33.0-37.0); MEAN PLATELET VOLUME 11.4 fl (9.6-12.3); MONO # 0.7 10*3/uL (0.1-1.0); MONO % 8.3 % (3.0-9.0); NEUT # 4.5 10*3/uL (2.3-7.9); NEUT % 51.1 % (47.0-73.0); NITRITE Negative (Negative); PH 6.5 (4.5-8.0); PLATELET COUNT AUTOMATED 178 10*3/uL (130-400); RED BLOOD COUNT 4.48 10*6/uL (4.10-5.10); RED CELL DISTRI WIDTH 13.9 % (0-14.5); RETICULOCYTE % 2.47 % (0.50-2.50); SPECIFIC GRAVITY 1.025 (1.001-1.030); WHITE BLOOD COUNT 8.8 10*3/uL (4.8-10.8)
[2023-01-07 17:21] LABS: BACTERIA 1+; MUCOUS 1+; WBC 31-40 wbc/hpf (0-5)
[2023-01-07 17:45] LABS: ALKALINE PHOSPHATASE 65 U/L (46-116); BUN 14 mg/dl (9-23); CHLORIDE 110 mmol/L (98-107); CHOLESTEROL 136 mg/dL (<200); GAMMA GLUTAMYL TRANSPEPTIDASE 34 U/L (0-73); LDL CHOLESTEROL 53 mg/dL (9-159); POTASSIUM 3.8 mmol/L (3.4-5.1); SGPT/ALT 28 U/L (10-49); THYROID STIM HORMONE (HS) 3.832 uIU/ml (0.550-4.780); TOTAL PROTEIN 6.3 gm/dL (6.0-8.0); TRIGLYCERIDES 277 mg/dl (<150)
== END | disposition home or self-care (01) ==
LOC: LAB 15:34 → US 16:00
PROVIDERS: ATTEND Family Medicine
DX: R22.42 Localized swelling, mass and lump, left lower limb (principal); E78.5 Hyperlipidemia, unspecified; R53.83 Other fatigue; R79.89 Other specified abnormal findings of blood chemistry; E55.9 Vitamin D deficiency, unspecified; M79.605 Pain in left leg

== ENCOUNTER 2023-02-06 17:07 | Emergency (ER) | payer OTHER ==
[~2023-02-06] VITALS: Ht 175.2 cm; Wt 144.2 kg
[2023-02-06 17:14] VITALS: BP 135/73
[2023-02-06 18:19] LABS: BASO # 0.1 10*3/uL (0.0-0.1); EOS # 0.1 10*3/uL (0.0-0.4); EOS % 1.2 % (1.0-4.0); HEMATOCRIT 42.4 % (37.0-47.0); LYMPH # 2.8 10*3/uL (1.3-4.4); MEAN CELL VOLUME 91.8 fl (81.0-99.0); MEAN CORPUSCULAR HGB 31.2 pg (27.0-31.0); MEAN PLATELET VOLUME 11.2 fl (9.6-12.3); MONO # 0.4 10*3/uL (0.1-1.0); MONO % 4.2 % (3.0-9.0); NEUT # 4.9 10*3/uL (2.3-7.9); NEUT % 59.2 % (47.0-73.0); PLATELET COUNT AUTOMATED 220 10*3/uL (130-400); RED BLOOD COUNT 4.62 10*6/uL (4.10-5.10); RED CELL DISTRI WIDTH 13.5 % (0-14.5); WHITE BLOOD COUNT 8.2 10*3/uL (4.8-10.8)
[2023-02-06 18:42] LABS: ALKALINE PHOSPHATASE 70 U/L (46-116); BUN 12 mg/dl (9-23); CHLORIDE 108 mmol/L (98-107); POTASSIUM 3.7 mmol/L (3.4-5.1); SGPT/ALT 36 U/L (10-49); TOTAL PROTEIN 6.4 gm/dL (6.0-8.0)
[2023-02-06 18:43] LABS: BETA-HCG, QUANT < 3.0 mIU/mL (3-10)
[2023-02-06] MEDS ORDERED: NAPROXEN250 MG PO (19:16)
[2023-02-06] MEDS ORDERED: METHOCARBAMOL750 M1 PO (19:16)
== END 2023-02-06 19:28 | disposition home or self-care (01) ==
LOC: ED 17:07
PROVIDERS: Emergency Medicine
DX: M54.42 Lumbago with sciatica, left side (principal); J44.9 Chronic obstructive pulmonary disease, unspecified; E11.9 Type 2 diabetes mellitus without complications; Z88.0 Allergy status to penicillin; Z88.2 Allergy status to sulfonamides; Z79.2 Long term (current) use of antibiotics; Z79.899 Other long term (current) drug therapy; Z98.51 Tubal ligation status; Z90.711 Acquired absence of uterus with remaining cervical stump

== ENCOUNTER 2023-03-21 16:21 | Inpatient (IN) | payer OTHER ==
[~2023-03-21] VITALS: Ht 177.8 cm; Wt 132.7 kg
[~2023-03-21 16:21] MED LIST changes: +METHOCARBAMOL750 M1 PO; +NAPROXEN250 MG PO
[2023-03-21 16:26] VITALS: BP 119/75
[2023-03-21 16:47] LABS: BASO # 0.1 10*3/uL (0.0-0.1); BASO % 0.8 % (0.0-1.0); EOS # 0.1 10*3/uL (0.0-0.4); EOS % 1.2 % (1.0-4.0); HEMATOCRIT 38.2 % (37.0-47.0); LYMPH # 1.5 10*3/uL (1.3-4.4); LYMPH % 18.2 % (27.0-41.0); MEAN CORPUSCULAR HGB 30.4 pg (27.0-31.0); MEAN CORPUSCULAR HGB CONC 34.6 g/dl (33.0-37.0); MEAN PLATELET VOLUME 11.1 fl (9.6-12.3); MONO # 0.5 10*3/uL (0.1-1.0); MONO % 5.4 % (3.0-9.0); NEUT # 6.1 10*3/uL (2.3-7.9); NEUT % 73.7 % (47.0-73.0); PLATELET COUNT AUTOMATED 280 10*3/uL (130-400); RED BLOOD COUNT 4.34 10*6/uL (4.10-5.10); RED CELL DISTRI WIDTH 13.2 % (0-14.5); WHITE BLOOD COUNT 8.3 10*3/uL (4.8-10.8)
[2023-03-21 17:11] LABS: ALKALINE PHOSPHATASE 87 U/L (46-116); BUN 13 mg/dl (9-23); CHLORIDE 103 mmol/L (98-107); POTASSIUM 3.1 mmol/L (3.4-5.1); SGPT/ALT 46 U/L (10-49); TOTAL PROTEIN 6.7 gm/dL (6.0-8.0)
[2023-03-21 17:26] VITALS: BP 111/69
[2023-03-21] MEDS ORDERED: GEMFIBROZIL600 MG PO (19:13)
[2023-03-21] MEDS ORDERED: DOXYCYCLINE MO100 MG PO (19:13)
[2023-03-21] MEDS ORDERED: Synthroid,Levo25 MCG PO (19:14)
[2023-03-21] MEDS ORDERED: MELOXICAM15 MG PO (19:15)
[2023-03-21 19:27] VITALS: BP 114/71
[2023-03-21 21:35] VITALS: BP 110/60; BP 92/56
[2023-03-21 23:15] VITALS: BP 112/74
[2023-03-22] VITALS (7 sets, daily range): BP systolic 91–113; BP diastolic 50–68
[2023-03-22] MEDS ORDERED: HUMALOG100 UNIT/1 SC (03:40)
[2023-03-22] MEDS ORDERED: LANTUS SOL100 UNIT/1 SC (03:41)
[2023-03-22] MEDS ORDERED: ONDANSETRON HYDR4 MG PO (03:43)
[2023-03-22 07:25] LABS: HEMATOCRIT 36.1 % (37.0-47.0); MEAN CELL VOLUME 89.4 fl (81.0-99.0); MEAN CORPUSCULAR HGB 29.7 pg (27.0-31.0); MEAN CORPUSCULAR HGB CONC 33.2 g/dl (33.0-37.0); MEAN PLATELET VOLUME 11.4 fl (9.6-12.3); PLATELET COUNT AUTOMATED 269 10*3/uL (130-400); RED BLOOD COUNT 4.04 10*6/uL (4.10-5.10); RED CELL DISTRI WIDTH 13.5 % (0-14.5); WHITE BLOOD COUNT 8.7 10*3/uL (4.8-10.8)
[2023-03-22 07:30] LABS: MANUAL DIFF REFLEX YES
[2023-03-22 07:38] LABS: ACT PARTIAL THROMBO TIME 29.1 SECONDS (20.0-32.1)
[2023-03-22 07:51] LABS: ALKALINE PHOSPHATASE 77 U/L (46-116); BUN 13 mg/dl (9-23); CHLORIDE 108 mmol/L (98-107); CHOLESTEROL 146 mg/dL (<200); FREE T4 1.24 ng/dl (0.89-1.76); POTASSIUM 3.8 mmol/L (3.4-5.1); SGPT/ALT 40 U/L (10-49); TOTAL PROTEIN 6.2 gm/dL (6.0-8.0); TRIGLYCERIDES 144 mg/dl (<150)
[2023-03-22 07:52] LABS: LDL CHOLESTEROL 100 mg/dL (9-159)
[2023-03-22 07:55] LABS: ATYPICAL LYMPHS 1 % (0-0); BASOPHILS 1 % (0-1); ROULEAUX SLIGHT; TOTAL CELLS COUNTED 100 #CELLS
[2023-03-22 07:56] LABS: BURR CELLS FEW; OVALOCYTES FEW; PLATELET SUFFICIENCY NORMAL (NORMAL); POLYCHROMASIA SLIGHT; TOXIC GRANULATION SLIGHT
[2023-03-22 08:18] LABS: VITAMIN D, 25-HYDROXY 55.9 ng/mL (30-100)
[2023-03-23] VITALS: BP 99/49
[2023-03-23 06:01] LABS: BUN 13 mg/dl (9-23); CHLORIDE 110 mmol/L (98-107); POTASSIUM 3.6 mmol/L (3.4-5.1)
[2023-03-23 06:06] LABS: BASO # 0.1 10*3/uL (0.0-0.1); EOS # 0.1 10*3/uL (0.0-0.4); EOS % 1.5 % (1.0-4.0); HEMATOCRIT 36.6 % (37.0-47.0); LYMPH # 2.4 10*3/uL (1.3-4.4); LYMPH % 35.8 % (27.0-41.0); MEAN CELL VOLUME 90.8 fl (81.0-99.0); MEAN CORPUSCULAR HGB 30.5 pg (27.0-31.0); MEAN CORPUSCULAR HGB CONC 33.6 g/dl (33.0-37.0); MEAN PLATELET VOLUME 11.5 fl (9.6-12.3); MONO # 0.4 10*3/uL (0.1-1.0); MONO % 5.3 % (3.0-9.0); NEUT # 3.8 10*3/uL (2.3-7.9); NEUT % 55.4 % (47.0-73.0); PLATELET COUNT AUTOMATED 278 10*3/uL (130-400); RED BLOOD COUNT 4.03 10*6/uL (4.10-5.10); RED CELL DISTRI WIDTH 13.8 % (0-14.5); WHITE BLOOD COUNT 6.8 10*3/uL (4.8-10.8)
[2023-03-23 08:00] VITALS: BP 114/63
[2023-03-23] MEDS ORDERED: DOXYCYCLINE HY100 M3 PO (09:27)
[2023-03-23 12:00] VITALS: BP 118/75
== END 2023-03-23 13:48 | disposition home or self-care (01) | DRG 602 ==
LOC: ED 16:21 → EDHOLD 17:55 → 4E 17:55 → EDHOLD 18:26 → 4E 23:59
PROVIDERS: Emergency Medicine; Student in an Organized Health Care Education/Training Program; ADMIT Internal Medicine Nephrology; ATTEND Internal Medicine
DX: L02.415 Cutaneous abscess of right lower limb (principal); E43 Unspecified severe protein-calorie malnutrition; E87.20 Acidosis, unspecified; Z68.41 Body mass index [BMI] 40.0-44.9, adult; E87.6 Hypokalemia; I10 Essential (primary) hypertension; E03.9 Hypothyroidism, unspecified; J44.9 Chronic obstructive pulmonary disease, unspecified; F17.210 Nicotine dependence, cigarettes, uncomplicated; E11.65 Type 2 diabetes mellitus with hyperglycemia; L03.115 Cellulitis of right lower limb; R74.01 Elevation of levels of liver transaminase levels; S71.101A Unspecified open wound, right thigh, initial encounter; X58.XXXA Exposure to other specified factors, initial encounter; Y93.89 Activity, other specified; Y92.89 Other specified places as the place of occurrence of the external cause; Z88.0 Allergy status to penicillin; Z88.2 Allergy status to sulfonamides; Z90.49 Acquired absence of other specified parts of digestive tract; Z98.51 Tubal ligation status; Z90.710 Acquired absence of both cervix and uterus; Z83.3 Family history of diabetes mellitus; Z82.49 Family history of ischemic heart disease and other diseases of the circulatory system; Z85.038 Personal history of other malignant neoplasm of large intestine; Z80.8 Family history of malignant neoplasm of other organs or systems; Y99.8 Other external cause status

== ENCOUNTER → 2023-03-27 | Outpatient (CLI) | payer OTHER ==
[~2023-03-27] MED LIST changes: +DOXYCYCLINE HY100 M3 PO; +DOXYCYCLINE MO100 MG PO; +HUMALOG100 UNIT/1 SC; +LANTUS SOL100 UNIT/1 SC; +MELOXICAM15 MG PO; +ONDANSETRON HYDR4 MG PO; +Synthroid,Levo25 MCG PO
== END | disposition home or self-care (01) ==
LOC: WOUNDCARE 03-26 07:06
PROVIDERS: ATTEND Nurse Practitioner Family
DX: L02.415 Cutaneous abscess of right lower limb (principal); E11.622 Type 2 diabetes mellitus with other skin ulcer; L97.112 Non-pressure chronic ulcer of right thigh with fat layer exposed; E11.65 Type 2 diabetes mellitus with hyperglycemia; L03.90 Cellulitis, unspecified; R00.1 Bradycardia, unspecified; I10 Essential (primary) hypertension; E78.5 Hyperlipidemia, unspecified; E03.9 Hypothyroidism, unspecified; J44.9 Chronic obstructive pulmonary disease, unspecified; F17.210 Nicotine dependence, cigarettes, uncomplicated; Z71.6 Tobacco abuse counseling; Z90.710 Acquired absence of both cervix and uterus; Z96.662 Presence of left artificial ankle joint

== ENCOUNTER → 2023-04-07 | Outpatient (CLI) | payer OTHER | END | disposition home or self-care (01) | LOC: WOUNDCARE 00:53 | PROVIDERS: ATTEND Nurse Practitioner Family | DX: L02.415 Cutaneous abscess of right lower limb (principal); E11.65 Type 2 diabetes mellitus with hyperglycemia; L03.90 Cellulitis, unspecified; R00.1 Bradycardia, unspecified; I10 Essential (primary) hypertension; E78.5 Hyperlipidemia, unspecified; E03.9 Hypothyroidism, unspecified; J44.9 Chronic obstructive pulmonary disease, unspecified; F17.210 Nicotine dependence, cigarettes, uncomplicated; Z71.6 Tobacco abuse counseling; Z90.710 Acquired absence of both cervix and uterus; Z96.662 Presence of left artificial ankle joint ==

== ENCOUNTER 2023-05-06 16:53 | Emergency (ER) | payer OTHER ==
[~2023-05-06] VITALS: Ht 180.3 cm; Wt 134.3 kg
[2023-05-06 17:14] VITALS: BP 124/84
[2023-05-06] MEDS ORDERED: VIBRAMYCIN100 MG PO (18:40)
== END 2023-05-06 19:13 | disposition home or self-care (01) ==
LOC: ED 16:53
DX: L02.415 Cutaneous abscess of right lower limb (principal); K21.9 Gastro-esophageal reflux disease without esophagitis; F32.A Depression, unspecified; E11.9 Type 2 diabetes mellitus without complications; E78.00 Pure hypercholesterolemia, unspecified; J44.9 Chronic obstructive pulmonary disease, unspecified; I10 Essential (primary) hypertension; M19.90 Unspecified osteoarthritis, unspecified site; Z88.0 Allergy status to penicillin; Z88.2 Allergy status to sulfonamides; E11.65 Type 2 diabetes mellitus with hyperglycemia; E87.6 Hypokalemia; E03.9 Hypothyroidism, unspecified; Z98.890 Other specified postprocedural states; Z90.710 Acquired absence of both cervix and uterus; Z98.51 Tubal ligation status; F17.210 Nicotine dependence, cigarettes, uncomplicated

== ENCOUNTER → 2023-05-15 | Outpatient (CLI) | payer OTHER | END | disposition home or self-care (01) | LOC: WOUNDCARE 03:36 | PROVIDERS: ATTEND Nurse Practitioner Family | DX: L73.2 Hidradenitis suppurativa (principal); L02.91 Cutaneous abscess, unspecified; L03.90 Cellulitis, unspecified; E11.65 Type 2 diabetes mellitus with hyperglycemia; R00.1 Bradycardia, unspecified; I10 Essential (primary) hypertension; E78.5 Hyperlipidemia, unspecified; E03.9 Hypothyroidism, unspecified; J44.9 Chronic obstructive pulmonary disease, unspecified; F17.210 Nicotine dependence, cigarettes, uncomplicated; Z71.6 Tobacco abuse counseling; Z90.710 Acquired absence of both cervix and uterus; Z96.662 Presence of left artificial ankle joint ==

== ENCOUNTER 2023-09-04 14:06 | Emergency (ER) | payer OTHER ==
[2023-09-04 14:15] VITALS: BP 119/73
[2023-09-04] MEDS ORDERED: MORPHINE Sulfate 2 MG/ML SYR IM ONE (14:45)
[2023-09-04] MEDS ORDERED: Ondansetron Hydrochloride 4 MG/2 ML VIAL IM ONE (14:45)
[2023-09-04] MEDS ORDERED: ZANAFLEX4 MG PO (16:48)
[2023-09-04] MEDS ORDERED: MEDROL DOSEPAK4 MG PO (16:48)
[2023-09-04] MEDS ORDERED: TRAMADOL HCL50 MG PO (16:48)
[2023-09-04] MEDS ORDERED: NAPROSYN500 MG PO (16:48)
== END 2023-09-04 17:06 | disposition home or self-care (01) ==
LOC: ED 14:06
DX: S39.012A Strain of muscle, fascia and tendon of lower back, initial encounter (principal); S70.01XA Contusion of right hip, initial encounter; I10 Essential (primary) hypertension; E11.9 Type 2 diabetes mellitus without complications; E03.9 Hypothyroidism, unspecified; J44.9 Chronic obstructive pulmonary disease, unspecified; K21.9 Gastro-esophageal reflux disease without esophagitis; F31.9 Bipolar disorder, unspecified; E78.00 Pure hypercholesterolemia, unspecified; F17.210 Nicotine dependence, cigarettes, uncomplicated; Z88.0 Allergy status to penicillin; Z88.2 Allergy status to sulfonamides; Z98.890 Other specified postprocedural states; Z90.710 Acquired absence of both cervix and uterus; Z98.51 Tubal ligation status; W17.89XA Other fall from one level to another, initial encounter; Y93.01 Activity, walking, marching and hiking; Y92.009 Unspecified place in unspecified non-institutional (private) residence as the place of occurrence of the external cause; Y99.8 Other external cause status

== ENCOUNTER 2023-09-19 14:15 | Emergency (ER) | payer OTHER ==
[~2023-09-19] VITALS: Wt 145.1 kg
[~2023-09-19 14:15] MED LIST changes: +MEDROL DOSEPAK4 MG PO; +ZANAFLEX4 MG PO
[2023-09-19 14:18] VITALS: BP 141/88
[2023-09-19] MEDS ORDERED: SODIUM CHLORIDE 0.9% 1,000 ML IV ONE (14:30)
[2023-09-19 14:58] LABS: BASO # 0.1 10*3/uL (0.0-0.1); BASO % 1.4 % (0.0-1.0); EOS # 0.2 10*3/uL (0.0-0.4); EOS % 2.3 % (1.0-4.0); HEMATOCRIT 41.4 % (37.0-47.0); LYMPH # 2.5 10*3/uL (1.3-4.4); LYMPH % 30.4 % (27.0-41.0); MEAN CELL VOLUME 88.5 fl (81.0-99.0); MEAN CORPUSCULAR HGB 29.5 pg (27.0-31.0); MEAN CORPUSCULAR HGB CONC 33.3 g/dl (33.0-37.0); MEAN PLATELET VOLUME 11.3 fl (9.6-12.3); MONO # 0.5 10*3/uL (0.1-1.0); MONO % 6.1 % (3.0-9.0); NEUT # 4.8 10*3/uL (2.3-7.9); NEUT % 59.4 % (47.0-73.0); PLATELET COUNT AUTOMATED 204 10*3/uL (130-400); RED BLOOD COUNT 4.68 10*6/uL (4.10-5.10); RED CELL DISTRI WIDTH 14.1 % (0-14.5); WHITE BLOOD COUNT 8.1 10*3/uL (4.8-10.8)
[2023-09-19 14:59] LABS: VENOUS PH 7.471 (7.37-7.45)
[2023-09-19 15:19] LABS: ALKALINE PHOSPHATASE 84 U/L (46-116); BUN 13 mg/dl (9-23); CHLORIDE 107 mmol/L (98-107); SGPT/ALT 24 U/L (5-49); TOTAL PROTEIN 6.5 gm/dL (6.0-8.0)
[2023-09-19] MEDS ORDERED: INSULIN LISPRO 1 UNIT/0.01 ML SQ ONE (15:50)
[2023-09-19] MEDS ORDERED: MAGNESIUM OXIDE 400 MG TAB PO ONE (16:40)
[2023-09-19] MEDS ORDERED: METFORMIN HYDR500 MG PO (17:06)
[2023-09-19] MEDS ORDERED: Doxycycline Hyclate 100 MG CAP PO ONE (17:10)
== END 2023-09-19 17:25 | disposition home or self-care (01) ==
LOC: ED 14:15
PROVIDERS: Nurse Practitioner Family
DX: E11.65 Type 2 diabetes mellitus with hyperglycemia (principal); L03.90 Cellulitis, unspecified; K21.9 Gastro-esophageal reflux disease without esophagitis; I10 Essential (primary) hypertension; F31.9 Bipolar disorder, unspecified; M19.90 Unspecified osteoarthritis, unspecified site; E78.00 Pure hypercholesterolemia, unspecified; J44.9 Chronic obstructive pulmonary disease, unspecified; E87.6 Hypokalemia; E03.9 Hypothyroidism, unspecified; Z88.0 Allergy status to penicillin; Z88.2 Allergy status to sulfonamides; Z90.710 Acquired absence of both cervix and uterus; Z98.51 Tubal ligation status; Z98.890 Other specified postprocedural states

== ENCOUNTER 2024-03-17 18:09 | Emergency (ER) | payer OTHER ==
[~2024-03-17] VITALS: Ht 175.2 cm; Wt 139.3 kg
[~2024-03-17 18:09] MED LIST changes: +METFORMIN HYDR500 MG PO
[2024-03-17] MEDS ORDERED: IOHEXOL 300 MG/ML 100 ML VIAL IV ONE (18:55)
[2024-03-17 19:10] LABS: BASO # 0.1 10*3/uL (0.0-0.1); BASO % 0.5 % (0.0-1.0); EOS # 0.1 10*3/uL (0.0-0.4); EOS % 0.7 % (1.0-4.0); HEMATOCRIT 41.3 % (37.0-47.0); LYMPH # 1.7 10*3/uL (1.3-4.4); LYMPH % 9.9 % (27.0-41.0); MEAN CELL VOLUME 88.1 fl (81.0-99.0); MEAN CORPUSCULAR HGB CONC 32.9 g/dl (33.0-37.0); MEAN PLATELET VOLUME 11.4 fl (9.6-12.3); MONO # 1.1 10*3/uL (0.1-1.0); MONO % 6.6 % (3.0-9.0); NEUT # 13.8 10*3/uL (2.3-7.9); NEUT % 81.2 % (47.0-73.0); PLATELET COUNT AUTOMATED 192 10*3/uL (130-400); RED BLOOD COUNT 4.69 10*6/uL (4.10-5.10); RED CELL DISTRI WIDTH 14.5 % (0-14.5)
[2024-03-17] MEDS ORDERED: Ketorolac Tromethamine 30 MG/ML VIAL IV ONE (19:20)
[2024-03-17 19:29] LABS: POTASSIUM 3.9 mmol/L (3.4-5.1)
[2024-03-17] MEDS ORDERED: SODIUM CHLORIDE 0.9% 1,000 ML IV SCH (20:00)
[2024-03-17] MEDS ORDERED: Vancomycin Hydrochloride 250 ML IV ONE (20:00)
[2024-03-17] MEDS ORDERED: DICLOFENAC SOD75 MG PO (21:04)
[2024-03-17] MEDS ORDERED: Carafate1 GM PO (21:04)
[2024-03-17] MEDS ORDERED: NOVOLIN 70100 UNIT/1 SQ (21:06)
[2024-03-17] MEDS ORDERED: HYDROXYZINE HCL25 MG PO (21:08)
[2024-03-17] MEDS ORDERED: VITAMIN D3125 MC1 PO (21:11)
[2024-03-17] MEDS ORDERED: NOREPINEPHRINE BITARTRATE/D5W 250 ML IV SCH (22:35)
[2024-03-18 01:44] VITALS: BP 99/72
== END 2024-03-18 01:54 | disposition short-term general hospital (02) ==
LOC: ED 18:09
PROVIDERS: Physician Assistant Medical
DX: N76.4 Abscess of vulva (principal); A41.9 Sepsis, unspecified organism; R65.21 Severe sepsis with septic shock; F17.200 Nicotine dependence, unspecified, uncomplicated; Z88.0 Allergy status to penicillin; Z88.2 Allergy status to sulfonamides; Z90.710 Acquired absence of both cervix and uterus; Z98.890 Other specified postprocedural states; Z98.51 Tubal ligation status

== ENCOUNTER 2024-04-23 16:57 | Emergency (ER) | payer OTHER ==
[~2024-04-23] VITALS: Ht 175.2 cm; Wt 81.6 kg
[~2024-04-23 16:57] MED LIST changes: +Carafate1 GM PO; +DICLOFENAC SOD75 MG PO; +HYDROXYZINE HCL25 MG PO; +VITAMIN D3125 MC1 PO
[2024-04-23 17:00] VITALS: BP 132/71
== END 2024-04-23 19:16 | disposition home or self-care (01) ==
LOC: ED 16:57
DX: T83.091A Other mechanical complication of indwelling urethral catheter, initial encounter (principal); K21.9 Gastro-esophageal reflux disease without esophagitis; I10 Essential (primary) hypertension; E11.9 Type 2 diabetes mellitus without complications; F31.9 Bipolar disorder, unspecified; M19.90 Unspecified osteoarthritis, unspecified site; E78.00 Pure hypercholesterolemia, unspecified; J44.9 Chronic obstructive pulmonary disease, unspecified; F17.210 Nicotine dependence, cigarettes, uncomplicated; Z88.0 Allergy status to penicillin; Z88.2 Allergy status to sulfonamides; Z90.710 Acquired absence of both cervix and uterus; Z98.890 Other specified postprocedural states; Z98.51 Tubal ligation status; Y73.8 Miscellaneous gastroenterology and urology devices associated with adverse incidents, not elsewhere classified; Y92.009 Unspecified place in unspecified non-institutional (private) residence as the place of occurrence of the external cause